=== PATIENT | male | born 1990 | race Caucasian/White ===

== ENCOUNTER 2017-01-21 12:04 | Emergency (ER) | payer MEDICAID ==
[~2017-01-21] VITALS: Ht 170.2 cm; Wt 88.5 kg
[2017-01-21 12:10] VITALS: Ht 170.2 cm; Wt 88.5 kg
--- NOTE | 2017-01-21 13:57 | RADRPT ---
AMENDMENT: 01/22/2017 8:39:59 AM Donovan Gonzalez M.D The submitted images do not represent the named patient. PROCEDURE: Left hand x-ray CLINICAL INDICATION: pain TECHNIQUE: AP, lateral and oblique views of the left hand were obtained. COMPARISON: None FINDINGS: There is normal mineralization. No acute fracture or dislocation is seen. There are no significant degenerative changes. There is soft tissue injury involving the ring finger. There is air in the subcutaneous soft tissues . There is no radiopaque foreign body. RPTAT: AA IMPRESSION: Soft tissue injury in the ring finger with no evidence of radiopaque foreign body. No acute fracture. .Donovan Gonzalez MD, Date Time Electronically viewed and signed by .Donovan Gonzalez MD, MD on 01/22/2017 08:40 .S/
[2017-01-21] MEDS ORDERED: LIDOCAINE 1% (MDV) 20 ML INJ SC ONE (14:00)
[2017-01-21] MEDS ORDERED: DIPHTH/TET/ACEL PERTUSS (ADULT) 0.5 ML VIAL IM* ONE (14:00)
[2017-01-21] MEDS ORDERED: IBUP-1542 PO (14:55)
[2017-01-21] MEDS ORDERED: CEPH-443 PO (14:57)
--- NOTE | 2017-01-21 15:13 | ERD ---
ER Documentation Chief Complaint Date/Time DATE: 01/21/17 TIME: 15:07 Chief Complaint LEFT THUMB LACERARTION HPI 26-year-old right hand dominant male patient with no significant past medical history presents to the ED complaining of a left thumb laceration that occurred earlier today. States that he was using a jackknife and accidently cut his left thumb. Denies any fever, chills, nausea, vomiting, loss of sensation, loss of range of motion, Patient states that he is not up-to-date with his tetanus vaccine. ROS All systems reviewed and are negative except as per history of present illness. Medications Home Meds Active Scripts Cephalexin* (Keflex*) 500 Mg Capsule, 500 MG PO QID for 7 Days, CAP Prov:SINCERE GARCIA PA-C 01/21/17 Ibuprofen* (Motrin*) 600 Mg Tab, 600 MG PO Q6, #30 TAB Prov:SINCERE GARCIA PA-C 01/21/17 Allergies Allergies: Coded Allergies: No Known Allergy (Unverified , 01/24/17) PMhx/Soc Medical and Surgical Hx: pt denies Medical Hx, pt denies Surgical Hx Hx Alcohol Use: No Hx Substance Use: No Hx Tobacco Use: No Smoking Status: Never smoker Physical Exam Vitals Vital Signs Date Time Temp Pulse Resp B/P Pulse Ox O2 Delivery O2 Flow Rate FiO2 01/21/17 12:10 99.0 75 18 141/90 100 Physical Exam Const: [id number], well-nourished. In no acute distress. Head: Atraumatic, normocephalic Eyes: Normal Conjunctiva without injection ENT: Normal external ear, nose and mouth. Neck: Full range of motion. No meningismus. Resp: Clear to auscultation bilaterally. No wheezing, rhonchi, rales, or crackles. No accessory muscle use. No retractions. Cardio: Regular rate and rhythm, no murmurs Skin: No petechiae or rashes Back: No midline tenderness. No CVA tenderness. Ext: No cyanosis, or edema. Cap refill less than 2 seconds. Distal pulses intact bilaterally. 2 cm laceration noted on the dorsal aspect of patient's left thumb. No surrounding erythema or edema. No visualization of foreign bodies or tendons. Full range of motion of DIP, PIP, MCP joints bilaterally. Neur: Awake and alert. Normal gait and coordination. Muscle strength 5/5. Sensation intact bilaterally. Psych: Normal Mood and Affect Results 24 hrs Current Medications Medications (Trade) Dose Ordered Sig/Neto Route PRN Reason Start Time Stop Time Status Last Admin Dose Admin Lidocaine (Xylocaine 1% (Mdv) 20 ml) 20 ml ONCE ONCE SC 01/21/17 14:00 01/21/17 14:01 DC 01/21/17 13:59 Diphtheria/ Tetanus/Acell Pertussis (Adacel) 0.5 ml ONCE ONCE IM* 01/21/17 14:00 01/21/17 14:01 DC 01/21/17 13:57 Procedures/MDM This is a 26-year-old male patient with no significant past medical history presents to the ED complaining of a left thumb injury. Patient is afebrile and nontoxic-appearing. Patient has normal vital signs. Patient has a laceration to his left thumb. Tdap administered. Patient gave consent to perform laceration repair. Laceration Repair by me: Anesthesia: 4 cc 1% lidocaine locally Location: Left thumb Tendon/Joint/Nerves: No injury Foreign body: None detected after copious irrigation and exploration Technique: 3 3-0 Ethilon Simple Interrupted Sutures Complexity: No subcutaneous sutures/mucosal repair/ edge excision Post Closure Length: [2] cm Patient's bleeding was easily controlled in the department and there is no indication of anemia. Patient is neurovascularly intact. No evidence of compartment syndrome, neurologic injury, vascular injury, open joint, tendon laceration, or foreign body. Patient is appropriate for outpatient follow up. 48 hour wound check. Scar minimization instructions given. Instructed patient to return for suture removal in 7-10 days. Keflex was prescribed to patient for infection prevention. Instructed patient to return to the ED sooner for any worsening symptoms. Follow up with primary care physician in 1-2 days. Patient's questions were answered. Patient understood and agreed with discharge plan. Departure Diagnosis: Primary Impression: Thumb laceration Encounter type: initial encounter Damage to nail status: unspecified Foreign body presence: unspecified Laterality: unspecified laterality Qualified Code: S61.019A - Laceration of thumb, foreign body presence unspecified, nail damage status unspecified, unspecified laterality, initial encounter Condition: Stable Patient Instructions: Laceration, Hand Referrals: [facility] YOU HAVE RECEIVED A MEDICAL SCREENING EXAM AND THE RESULTS INDICATE THAT YOU DO NOT HAVE A CONDITION THAT REQUIRES URGENT TREATMENT IN THE EMERGENCY DEPARTMENT. FURTHER EVALUATION AND TREATMENT OF YOUR CONDITION CAN WAIT UNTIL YOU ARE SEEN IN YOUR DOCTORS OFFICE WITHIN THE NEXT 1-2 DAYS. IT IS YOUR RESPONSIBILITY TO MAKE AN APPOINTMENT FOR FOLOW-UP CARE. IF YOU HAVE A PRIMARY DOCTOR --you should call your primary doctor and schedule an appointment IF YOU DO NOT HAVE A PRIMARY DOCTOR YOU CAN CALL OUR PHYSICIAN REFERRAL HOTLINE AT IF YOU CAN NOT AFFORD TO SEE A PHYSICIAN YOU CAN CHOSE FROM THE FOLLOWING [facility] [address] [facility] [address] [facility]. [facility] [address] [facility] [facility] [address] [facility] [address] [facility]. [facility] [address] [facility]. [facility] YOU HAVE RECEIVED A MEDICAL SCREENING EXAM AND THE RESULTS INDICATE THAT YOU DO NOT HAVE A CONDITION THAT REQUIRES URGENT TREATMENT IN THE EMERGENCY DEPARTMENT. FURTHER EVALUATION AND TREATMENT OF YOUR CONDITION CAN WAIT UNTIL YOU ARE SEEN IN YOUR DOCTORS OFFICE WITHIN THE NEXT 1-2 DAYS. IT IS YOUR RESPONSIBILITY TO MAKE AN APPOINTMENT FOR FOLOW-UP CARE. IF YOU HAVE A PRIMARY DOCTOR --you should call your primary doctor and schedule and appointment IF YOU DO NOT HAVE A PRIMARY DOCTOR YOU CAN CALL OUR PHYSICIAN REFERRAL HOTLINE AT . IF YOU CAN NOT AFFORD TO SEE A PHYSICIAN YOU CAN CHOSE FROM THE FOLLOWING [facility]: [facility] [address] [place] [address] [facility] [address] [place] [address] [facility] [address] [place] [address] [facility] Additional Instructions: Follow up in 2 days in your clinic for wound check. Follow up with your physician to remove the stitches:For Face wounds 5-7 days.For Elsewhere on the body 7-10 days. Call your primary care doctor TOMORROW for an appointment during the next 2-3 days.See the doctor sooner or return here if your condition worsens before your appointment time. SINCERE GARCIA PA-C Jan 21, 2017 15:13
--- NOTE | 2017-01-21 16:17 | RADRPT ---
PROCEDURE: Left hand x-ray CLINICAL INDICATION: LEFT HAND INJURY TECHNIQUE: AP, lateral and oblique views of the left hand were obtained. COMPARISON: None FINDINGS: There is normal mineralization. No acute fracture or dislocation is seen. Mild soft tissue swelling about the first digit. IMPRESSION: No acute fracture or dislocation of the left hand. RPTAT: QQ Xin Lezama Physician Date Time Electronically viewed and signed by Xin Lezama Physician on 01/21/2017 16:16 /
== END 2017-01-21 15:10 | disposition home or self-care (01) ==
LOC: FTE 12:04
DX: S61.012A Laceration without foreign body of left thumb without damage to nail, initial encounter (principal); W26.0XXA Contact with knife, initial encounter; Y92.9 Unspecified place or not applicable; Z23 Encounter for immunization
CPT/HCPCS: 12001; 73130; 90471; 90715; Z7502; Z7610

== ENCOUNTER 2017-01-24 10:01 | Emergency (ER) | payer MEDICAID ==
[~2017-01-24] VITALS: Ht 157.5 cm; Wt 90.5 kg
[~2017-01-24 10:01] MED LIST: CEPH-443 PO; IBUP-1542 PO
[2017-01-24 10:02] VITALS: Ht 157.5 cm; Wt 90.5 kg
--- NOTE | 2017-01-24 10:49 | ERD ---
ER Documentation Chief Complaint Date/Time DATE: 01/24/17 TIME: 10:48 Chief Complaint wound check sutures in 3 days, lt thumb HPI This is a 26-year-old male presenting to the emergency room to check his sutures on a repaired laceration on his left thumb that occurred 3 days prior to being seen at a different facility. Patient states that he was working on his car and got scratched by piece of metal. Patient states that he was given prescriptions he is unsure if there are antibiotics. He denies any fevers, increased pain. ROS All systems reviewed and are negative except as per history of present illness. Medications Home Meds Active Scripts Cephalexin* (Keflex*) 500 Mg Capsule, 500 MG PO QID for 7 Days, CAP Prov:SINCERE GARCIA PA-C 01/21/17 Ibuprofen* (Motrin*) 600 Mg Tab, 600 MG PO Q6, #30 TAB Prov:SINCERE GARCIA PA-C 01/21/17 Allergies Allergies: Coded Allergies: No Known Allergy (Unverified , 01/24/17) PMhx/Soc Medical and Surgical Hx: pt denies Medical Hx, pt denies Surgical Hx Hx Alcohol Use: No Hx Substance Use: No Hx Tobacco Use: No Smoking Status: Never smoker Physical Exam Vitals Vital Signs Date Time Temp Pulse Resp B/P Pulse Ox O2 Delivery O2 Flow Rate FiO2 01/24/17 10:02 98.2 77 20 122/96 97 Physical Exam Const: Well-developed well-nourished Head: Atraumatic Eyes: Normal Conjunctiva ENT: Normal External Ears, Nose and Mouth. Neck: Full range of motion..~ No meningismus. Resp: Clear to auscultation bilaterally Cardio: Regular rate and rhythm, no murmurs Abd: Soft, non tender, non distended. Normal bowel sounds Skin: Sutures intact, no evidence of erythema or purulence Back: No midline or flank tenderness Ext: No cyanosis, or edema Neur: Awake and alert Psych: Normal Mood and Affect Procedures/MDM 26-year-old male presents for a suture check from a repaired laceration done on a different facility 3 days prior to being seen. There was no evidence of dehiscence or cellulitis. No evidence of flexor synovitis, lymphangitis. Patient stable to be discharged home with instruction to follow-up with his primary care physician. Or return for any worsening signs or symptoms he understands and agrees with this plan. Departure Diagnosis: Primary Impression: Encounter for wound re-check Condition: Stable Patient Instructions: Wound Care, Wound Check, Lac F/U (No Infection) Referrals: NO PRIMARY,CARE PHYSICIAN (PCP) Additional Instructions: FOLLOW UP WITH YOUR PRIMARY CARE PHYSICIAN TOMORROW.Return to this facility if you are not improving as expected. Return to this facility if you are not improving as expected. Take all medicines as directed. HOLLAND SWANSON PA-C Jan 24, 2017 10:49
== END 2017-01-24 10:43 | disposition home or self-care (01) ==
LOC: FTE 10:01 → EDUNIT# 10:01 → FTE 10:43
DX: Z48.01 Encounter for change or removal of surgical wound dressing (principal)
CPT/HCPCS: 99281

== ENCOUNTER 2017-01-29 10:05 | Emergency (ER) | payer MEDICAID ==
[~2017-01-29] VITALS: Wt 89.0 kg
--- NOTE | 2017-01-29 10:35 | ERD ---
ER Documentation Chief Complaint Date/Time DATE: 01/29/17 TIME: 10:31 Chief Complaint SUTURE REMOVAL HPI 26-year-old male presenting to ED for suture removal. Patient had sutures placed 6 days ago after a car lift fell on his thumb. Patient is right-hand dominant. Sutures are placed in his left thumb. Up-to-date on tetanus shot. Patient denies pain and is able to move digits without difficulty. ROS All systems reviewed and are negative except as per history of present illness. Medications Home Meds Active Scripts Cephalexin* (Keflex*) 500 Mg Capsule, 500 MG PO QID for 7 Days, CAP Prov:SINCERE GARCIA PA-C 01/21/17 Ibuprofen* (Motrin*) 600 Mg Tab, 600 MG PO Q6, #30 TAB Prov:SINCERE GARCIA PA-C 01/21/17 Allergies Allergies: Coded Allergies: No Known Allergy (Unverified , 01/24/17) PMhx/Soc History of Surgery: No Anesthesia Reaction: No Hx Neurological Disorder: No Hx Respiratory Disorders: No Hx Cardiac Disorders: No Hx Psychiatric Problems: No Hx Miscellaneous Medical Probl: No Hx Alcohol Use: No Hx Substance Use: No Hx Tobacco Use: No Smoking Status: Never smoker Physical Exam Vitals Vital Signs Date Time Temp Pulse Resp B/P Pulse Ox O2 Delivery O2 Flow Rate FiO2 01/29/17 10:07 98.0 112 18 120/76 99 Physical Exam GENERAL: The patient is well-appearing, well-nourished, in no acute distress CHEST: Clear to auscultation bilaterally. There are no rales, wheezes or rhonchi. HEART: Regular rate and rhythm. No murmurs, clicks, rubs or gallops. No S3 or S4. EXTREMITIES: Patient able to isolate at the DIP joint of the left thumb. No tenderness to palpation over the left thumb. No deformities. No swelling. NEUROLOGIC: Neurovascularly intact to the distal left thumb. Pulses intact. SKIN: Sutures noted to dorsal aspect of left thumb. Wound is closed and no dehiscence appreciated. No surrounding erythema. No purulence. Procedures/MDM ER Course: 3 simple interrupted sutures removed without complication. Band- Aid placed. MDM: 26-year-old male coming in for suture removal. I have low suspicion for tendon or ligament injury. I have low suspicion for infection or dehiscence of the wound. I have low suspicion for neurodeficit. Patient's exam is non- concerning and sutures were removed without complication. Departure Diagnosis: Primary Impression: Encounter for removal of marta Condition: Stable Patient Instructions: Suture Removal, No Complication Referrals: [facility] YOU HAVE RECEIVED A MEDICAL SCREENING EXAM AND THE RESULTS INDICATE THAT YOU DO NOT HAVE A CONDITION THAT REQUIRES URGENT TREATMENT IN THE EMERGENCY DEPARTMENT. FURTHER EVALUATION AND TREATMENT OF YOUR CONDITION CAN WAIT UNTIL YOU ARE SEEN IN YOUR DOCTORS OFFICE WITHIN THE NEXT 1-2 DAYS. IT IS YOUR RESPONSIBILITY TO MAKE AN APPOINTMENT FOR FOLOW-UP CARE. IF YOU HAVE A PRIMARY DOCTOR --you should call your primary doctor and schedule an appointment IF YOU DO NOT HAVE A PRIMARY DOCTOR YOU CAN CALL OUR PHYSICIAN REFERRAL HOTLINE AT IF YOU CAN NOT AFFORD TO SEE A PHYSICIAN YOU CAN CHOSE FROM THE FOLLOWING [facility] [address] [facility]. [facility] [address] [facility] [address] [facility] [address] [facility]. [facility] [address] [facility]. [facility]. [address] Additional Instructions: FOLLOW UP WITH YOUR PRIMARY CARE PHYSICIAN TOMORROW.Return to this facility if you are not improving as expected. JC GUERRERO PA-C Jan 29, 2017 10:35
== END 2017-01-29 10:31 | disposition home or self-care (01) ==
LOC: FTE 10:05
DX: Z48.02 Encounter for removal of sutures (principal)
CPT/HCPCS: 99281